=== PATIENT | female | born 1935 | race Caucasian/White ===

== ENCOUNTER 2018-07-12 14:00 | Outpatient (RCR) ==
--- NOTE | 2018-06-26 14:34 | RS.OPPTEV2 ---
Date of Note: 06/25/18 Visit #: 1 Date of Evaluation: 06/25/18 Payer Source: MEDICARE Treatment Diagnosis: Balance impairment, unsteady gait History of Condition/Mechanism of Injury:: Mrs. Louis reports progressive unsteadiness on her feet over the last two years. States she has lost a lot of weight due to illness and stress. Prior Level of Function.....Patient was independent with: ADL's, Self Care, Caregiving, Ambulation/Mobility, Community Integration/Access Level of Function: Independent in community. Functional Limitations: Reaching, Pushing, Community Access/Integration Current Subjective/complaints:: Patient reports being unsteady on her feet. She describes times of feeling lightheaded and veering when she walks. Denies a history of falls. States she is here to prevent falls. She has been on antibiotics for several months for a lung infection. Denies any shortness of breath with activity or prolonged walking. She denies tingling or numbness in the LE's. She does not use an assistive device for ambulation. She has 3 steps with a rail, leading to the garage, which she uses daily. Treatment Side (optional): N/A Medical History Medical History: Arthritis (hands) Surgical History: Tonsillectomy Smoking Status: Former smoker Hx Home Medications: States her medications have not been changed recently. synthroid, acebutolol, naproxen,voltaren gel, mucinex, (Clarithromyc,Rifampin, Ethambutol (3 antibiotics for lungs), cod liver oil, calcium Patient's Goals: Her goal is to avoid falls. Functional Outcome Measure Tinetti: 24 (24/28=14% impairment) Dynamic Gait: 16 (16/24=33% impairment) Other: 5X Sit to stand test: 16.13 seconds Norms for 80-89 y/0 is 14.8 seconds - G Codes & Severity Modifier G Codes & Modifier: Mobility current CJ. Mobility goal CH Source of G Code score: Dynamic Gait index Observation - Observation Posture: Forward Head, Rounded Shoulders, Decreased Lumbar Lordosis Gait - Gait Pattern Gait Comments: Patient ambulates without an assistive device independently into department. She demonstrates a narrow base of support, short stride length, and minimal foot clearance bilaterally. She demonstrates no loss of balance. She does demonstrate a slight path deviation with ambulating a straight path and following changing direction. General Range of Motion: Demonstrates full functional AROM of bilateral LE's. Muscle Strength: Right LE strength is 4+ to 5/5 throughout. Left hip is generally 4/5. Left quads and HS 4/5, ankle 4+/5. Trunk strength 4/5. Sensation - Sensation Right Lower Extremity: Intact/Normal Left Lower Extremity: Intact/Normal Balance - Sitting Balance Static Sitting Balance: Good Dynamic Sitting Balance: Good - Standing Balance Static Standing Balance: Good Dynamic Standing Balance: Fair (+) Additional Comments: Additional Comments: Blood pressure taken in sitting at rest 111/57 . BP taken immediately after standin/59, then taken one minute later: 92/57. Patient reports slight lightheadedness while standing. Interventions - Exercise/Activities/Manual Therapy Exercises/Activities: Patient instructed in HEP of hip abd/add in supine, standing hip abduction, and hip flexion and LAQ's in sitting. Discussed the change we saw in her BP after standing for a minute. Encouraged patient to take her time with transfers and to wait a little bit longer before walking. Total minutes of Exercise: 5 mins Manual Therapy: NA HOME EXERCISE PROGRAM: hip abd/add in supine, standing hip abduction, and hip flexion and LAQ's in sitting. - Charges Timed Code Treatment Minutes: 5 mins Total Treatment Time: 48 mins Procedures billed for this date of service:: EVAL medium EVALUATION COMPLEXITY LEVEL EVALUATION COMPLEXITY LEVEL: HISTORY: Medium (current lung infection, recent weight loss, possible orthostatic hypotension), EXAM OF BODY SYSTEMS: Medium ( strength, coordination, sensation, balance), CLINICAL PRESENTATION: Medium, CLINICAL DECISION MAKING: Medium Assessment Assessment: Patient presents to therapy with a diagnosis of balance problems. She presents with reports of times of lightheadedness with ambulation and veering from a straight path when ambulating. She presents to be at a low risk for falls per Tinetti Assessment, but Dynamic Gait Index shows patient at a 33.4 % impairment. She demonstrates weakness in the left hip, knee, and ankle. She demonstrates a 19 point drop in systolic after one minute of standing from a chair,which can cause symptoms that she has been having of lightheadedness. Advised patient to take her time following supine to stand, or sit to stand transfers, to decrease her risk for falls. Mrs. Louis demonstrates potential to reduce her risk for falls with strengthening of the left LE and safety training to reduce gait deviations with ambulation. Patient Education: Education of diagnosis, Body/Joint mechanics, Home Exercise Program, Home Safety, Activity Modification, Education of Plan of Care Rehab Potential: Good Short Term Goals Goal #1: Patient will display independence with home exercise program. Goal to be met by: 07/10/18 Goal #2: Left hip flexion 4+/5. Goal to be met by: 07/10/18 Goal #3: Pt will amb. consistently with good base of support in department. Goal to be met by: 07/10/18 Brazing Machine Operator Goals Goal #1: Pt knows HEP and to continue ex's to maintain functional level at D/C. Goal to be met by: 08/05/18 Goal #2: Score on 5 X sit to stand test improved to 14.5 seconds Goal to be met by: 08/05/18 Goal #3: Pt to amb. community distances with good safety & min. gait deviations. Goal to be met by: 08/05/18 Plan - Treatment to be Provided Procedures: Therapeutic Exercises, Therapeutic Activity, Gait Training, Neuromuscular Rehab, Patient Education Modalities: No Modalities - Treatment Plan Frequency: 2 X week Duration: 4 weeks ORDER # VISITS AND/OR THROUGH DATE: 08/05/18 - Treatment Code (1) General unsteadiness Code(s): R26.81 - UNSTEADINESS ON FEET Comments: R26.81 (2) Leg weakness Code(s): M62.81 - MUSCLE WEAKNESS (GENERALIZED) Qualifiers: Laterality: left Qualified Code(s): R29.898 - Other symptoms and signs involving the musculoskeletal system (3) Orthostatic hypotension Code(s): I95.1 - ORTHOSTATIC HYPOTENSION Comments: I95.1
--- NOTE | 2018-06-28 10:25 | RS.OPPTDN ---
Subjective Date of Note: 06/28/18 Visit #: 2 Date of Evaluation: 06/25/18 Payer Source: MEDICARE Treatment Diagnosis: Balance impairment, unsteady gait Current Subjective/complaints:: Patient reports her greatest difficulty with longer walks is going straight ahead,veering to L or R. Interventions - Exercise/Activities/Manual Therapy Exercises/Activities: 45 mins. total of LE strengthening,5 mins. on bike ,then progressed to leg press,3/15 @ 45 #,calf raises @ 15 #.Seated exercises ,3/10 of LAQ,and hip flexion in sitting.Ended session with side stepping ,and high stepping woth hand hold of 1. Total minutes of Exercise: 45 Manual Therapy: NA Total minutes of Manual Therapy: 0 HOME EXERCISE PROGRAM: hip abd/add in supine, standing hip abduction, and hip flexion and LAQ's in sitting. - Objective Findings Observations,measurements,etc.: Blood pressure sitting 118/74,110 /64 standing. 18/70 after 5 mins. bike,126/78 after standing balance exercises. - Charges Timed Code Treatment Minutes: 40 Total Treatment Time: 45 Procedures billed for this date of service:: ex 2,NMR 1 Assessment: Patient tolerates treatment well,is very attentive ,motivated to improve.She rports fatigue only ,bno joint pain with exercises.She only has one brief loss of balance with high steps ,but self -corrects. Patient Education: Education of diagnosis, Body/Joint mechanics, Home Exercise Program, Home Safety, Activity Modification, Education of Plan of Care Patient demonstrates compliance with HEP?: Yes Short Term Goals Goal #1: Patient will display independence with home exercise program. Goal to be met by: 07/10/18 Goal #2: Left hip flexion 4+/5. Goal to be met by: 07/10/18 Goal #3: Pt will amb. consistently with good base of support in department. Goal to be met by: 07/10/18 Credit Clerk Goals Goal #1: Pt knows HEP and to continue ex's to maintain functional level at D/C. Goal to be met by: 08/05/18 Goal #2: Score on 5 X sit to stand test improved to 14.5 seconds Goal to be met by: 08/05/18 Goal #3: Pt to amb. community distances with good safety & min. gait deviations. Goal to be met by: 08/05/18 Plan PLAN OF CARE EXPIRES ON:: 08/05/18 ORDER # VISITS AND/OR THROUGH DATE: 08/05/18 PLAN: Continue PT to increase LE strength ,reducing the risk of falls.
--- NOTE | 2018-07-02 15:14 | RS.OPPTDN ---
Subjective Date of Note: 07/02/18 Visit #: 3 Date of Evaluation: 06/25/18 Payer Source: MEDICARE Treatment Diagnosis: Balance impairment, unsteady gait Current Subjective/complaints:: Patient reports her L hip is hurting her more , but continues to do HEP twice a day.We discussed to decrease the amount of exercises if necessary,and use ice due to also being tender to palpate the L trochanter area. Pain Assessment - Pain Description Pain Location: L hip Pain Description: Aching, Acute Current Pain Intensity: not rated Other Comments regarding Pain:: pain affects her sitting for prolonged time periods Interventions - Exercise/Activities/Manual Therapy Exercises/Activities: 45 mins. total of LE strengthening,seated calf raises,3/10 ,attempted seated hip flexion and LAQ's with 1# resistance ,but stopped due to L hip pain.[employer] BALANCE SYSTEM of postural stability,weight shift ,limits of stability ,and maze control. Total minutes of Exercise: 50 Manual Therapy: NA Total minutes of Manual Therapy: 0 HOME EXERCISE PROGRAM: hip abd/add in supine, standing hip abduction, and hip flexion and LAQ's in sitting. - Charges Timed Code Treatment Minutes: 50 Total Treatment Time: 55 Procedures billed for this date of service:: ex ,NMR 2 Assessment: Patient tolerates balance system well,has deficit with weight shift to L and posteriorly,indicative of L hip wealness.She is motivated to imptove, compliant to HEP.We discussed modifying her exercise program at home,walking more and less of HEP .She is tender to palpate te L trochanter today. Patient Education: Education of diagnosis, Body/Joint mechanics, Home Exercise Program, Home Safety, Activity Modification, Education of Plan of Care Patient demonstrates compliance with HEP?: Yes Short Term Goals Goal #1: Patient will display independence with home exercise program. Goal to be met by: 07/10/18 Progress towards Goal:: Progressing Goal #2: Left hip flexion 4+/5. Goal to be met by: 07/10/18 Goal #3: Pt will amb. consistently with good base of support in department. Goal to be met by: 07/10/18 Progress towards Goal:: Progressing Longterm Goals Goal #1: Pt knows HEP and to continue ex's to maintain functional level at D/C. Goal to be met by: 08/05/18 Progress towards goal: Progressing Goal #2: Score on 5 X sit to stand test improved to 14.5 seconds Goal to be met by: 08/05/18 Goal #3: Pt to amb. community distances with good safety & min. gait deviations. Goal to be met by: 08/05/18 Plan PLAN OF CARE EXPIRES ON:: 08/05/18 ORDER # VISITS AND/OR THROUGH DATE: 08/05/18 PLAN: Continue PT to increase LE/trunk strength ,resulting in steadier gait.
--- NOTE | 2018-07-05 15:01 | RS.OPPTDN ---
Subjective Date of Note: 07/05/18 Visit #: 4 Date of Evaluation: 06/25/18 Payer Source: MEDICARE Treatment Diagnosis: Balance impairment, unsteady gait Current Subjective/complaints:: Patient reports the L hip feels better today,is walking more and doing less of the AROM,especially for the L hip. Pain Assessment - Pain Description Pain Location: none today Pain Description: none Interventions - Exercise/Activities/Manual Therapy Exercises/Activities: 45 mins. total of LE strengthening,in supine with 2.5 # all directions,3/10 each.Ended session with dynamic balance of side=steps ,SLS for 3 secs. on each LE. Total minutes of Exercise: 45 Manual Therapy: NA HOME EXERCISE PROGRAM: hip abd/add in supine, standing hip abduction, and hip flexion and LAQ's in sitting. - Objective Findings Observations,measurements,etc.: BP 1 supine 124/68 ,BP 2 sitting 124/64,BP 3 is 120 /62. . - Charges Timed Code Treatment Minutes: 45 Total Treatment Time: 45 Procedures billed for this date of service:: ex 2,NMR 1 Assessment: Progressing ,minimal drop in BP today with position change.She tolerates the exercises well,but requires to control speed of eccentric motions as she fatigues. Patient Education: Education of diagnosis, Body/Joint mechanics, Home Exercise Program, Home Safety, Activity Modification, Education of Plan of Care Short Term Goals Goal #1: Patient will display independence with home exercise program. Goal to be met by: 07/10/18 Progress towards Goal:: Progressing Goal #2: Left hip flexion 4+/5. Goal to be met by: 07/10/18 Progress towards Goal:: Progressing Goal #3: Pt will amb. consistently with good base of support in department. 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 Goal to be met by: 08/05/18 Progress towards goal: Progressing Goal #2: Score on 5 X sit to stand test improved to 14.5 seconds Goal to be met by: 08/05/18 Goal #3: Pt to amb. community distances with good safety & min. gait deviations. Goal to be met by: 08/05/18 Plan PLAN OF CARE EXPIRES ON:: 08/05/18 ORDER # VISITS AND/OR THROUGH DATE: 08/05/18 PLAN: Continue PT to increase LE/hip strength ,for safer gait .
--- NOTE | 2018-07-10 15:30 | RS.OPPTDN ---
Subjective Date of Note: 07/10/18 Visit #: 5 Date of Evaluation: 06/25/18 Payer Source: MEDICARE Treatment Diagnosis: Balance impairment, unsteady gait Current Subjective/complaints:: Patient says that she has not been feeling well this week. She says she gets light headed in the morning with needing to stand longer to gather her balance and at times requires to hold onto the wall or furniture. She says she has to care for her that is failing in his health. She says she has not performed HEP lately because she has not felt well. Pain Assessment - Pain Description Pain Location: No elevation in pain, just not feeling good throughout her body. Interventions - Exercise/Activities/Manual Therapy Exercises/Activities: Patient performs: QS, SAQ 2 1/2#, DF and hooklying hip abd with green tband, ball squeezes, all 2x10 reps. Isometric hip flexion x 10. Patient's BP taken intermittently. Standing at railing: marching, hip abd both x 10, forward step ups on small board x 5, then lateral step ups x 5 leading each side. Total minutes of Exercise: 28 mins EX, 10 mins NEURO Manual Therapy: NA HOME EXERCISE PROGRAM: hip abd/add in supine, standing hip abduction, and hip flexion and LAQ's in sitting. - Objective Findings Observations,measurements,etc.: BP: 120/68 sitting, 118/70 supine, sitting after therex: 122/70, standin/62 R arm - Charges Timed Code Treatment Minutes: 38 Total Treatment Time: 43 Procedures billed for this date of service:: ex2, neuro1 Assessment: Patient not feeling well this week and rests provided today. Minimal change with BP during positional changes with exception of sit to stand following exercise 22 point drop systolically and 8 points diastolically. All dynamic exercises performed without LOB, but did c/o mild lightheadedness with R lateral step ups. Patient Education: Body/Joint mechanics, Home Exercise Program, Home Safety, Education of Plan of Care Patient demonstrates compliance with HEP?: Yes Short Term Goals Goal #1: Patient will display independence with home exercise program. Goal to be met by: 07/10/18 Progress towards Goal:: Progressing Goal #2: Left hip flexion 4+/5. Goal to be met by: 07/10/18 Progress towards Goal:: Progressing Goal #3: Pt will amb. consistently with good base of support in department. Goal to be met by: 07/10/18 Progress towards Goal:: Progressing Group Home Goals Goal #1: Pt knows HEP and to continue ex's to maintain functional level at D/C. Goal to be met by: 08/05/18 Progress towards goal: Progressing Goal #2: Score on 5 X sit to stand test improved to 14.5 seconds Goal to be met by: 08/05/18 Goal #3: Pt to amb. community distances with good safety & min. gait deviations. Goal to be met by: 08/05/18 Plan PLAN OF CARE EXPIRES ON:: 08/05/18 ORDER # VISITS AND/OR THROUGH DATE: 08/05/18 PLAN: Patient to continue advancing LE strengthening and bal exercise to improve gait.
--- NOTE | 2018-07-12 16:31 | RS.OPPTDN ---
Subjective Date of Note: 07/12/18 Visit #: 6 Date of Evaluation: 06/25/18 Payer Source: MEDICARE Treatment Diagnosis: Balance impairment, unsteady gait Current Subjective/complaints:: Patient reports she feels slightly better,but not as good as last week.She continues to be cautious when standing due to drop in BP. Pain Assessment - Pain Description Pain Description: soreness Current Pain Intensity: minimal Interventions - Exercise/Activities/Manual Therapy Exercises/Activities: Patient performs: side stepping ,high stepping ,sit to stand multiple reps.BP sitting 128/64 ,standing 126/62.[employer] BALANCE SYSTEM for postural stability,random control ,pitch/catch game ,weight shifting. Total minutes of Exercise: 50 Manual Therapy: NA Total minutes of Manual Therapy: 0 HOME EXERCISE PROGRAM: hip abd/add in supine, standing hip abduction, and hip flexion and LAQ's in sitting. - Charges Timed Code Treatment Minutes: 50 Total Treatment Time: 55 Procedures billed for this date of service:: NMR2,ex 1 Assessment: Patient instructed to widen base of support with walking for stability.She has minimal drop in BP today with change of position.She has minimal loss of balance with high-steps,minimal assist to correct.She is attentive and compliant to HEP.We discussed a regular walking program at home to possibly elevate the BP more consistently. Patient Education: Education of diagnosis, Body/Joint mechanics, Home Exercise Program, Home Safety, Activity Modification, Education of Plan of Care Patient demonstrates compliance with HEP?: Yes Short Term Goals Goal #1: Patient will display independence with home exercise program. Goal to be met by: 07/10/18 Progress towards Goal:: Progressing Goal #2: Left hip flexion 4+/5. Goal to be met by: 07/10/18 Progress towards Goal:: Progressing Goal #3: Pt will amb. consistently with good base of support in department. Goal to be met by: 07/10/18 Progress towards Goal:: Partially Met Retirement Goals Goal #1: Pt knows HEP and to continue ex's to maintain functional level at D/C. Goal to be met by: 08/05/18 Progress towards goal: Progressing Goal #2: Score on 5 X sit to stand test improved to 14.5 seconds Goal to be met by: 08/05/18 Goal #3: Pt to amb. community distances with good safety & min. gait deviations. Goal to be met by: 08/05/18 Plan PLAN OF CARE EXPIRES ON:: 08/05/18 ORDER # VISITS AND/OR THROUGH DATE: 08/05/18 PLAN: Continue PT to strengthen LE's and core for safe gait and necessary ADL's.
== END 2018-07-13 23:59 ==
PROVIDERS: ATTEND Internal Medicine
DX: R26.89 Other abnormalities of gait and mobility (principal)

== ENCOUNTER 2018-07-19 13:00 | Outpatient (RCR) ==
--- NOTE | 2018-07-17 14:15 | RS.OPPTDN ---
Subjective Date of Note: 07/17/18 Visit #: 7 Date of Evaluation: 06/25/18 Payer Source: MEDICARE Treatment Diagnosis: Balance impairment, unsteady gait Current Subjective/complaints:: Patient feels the balance exercises help her the most.She also reports the light - headed feeling is better," almost gone ." Interventions - Exercise/Activities/Manual Therapy Exercises/Activities: 45 mins. total on [employer] BALANCE SYSTEM including postural stability,limits of stability , weight shifting ,random control ,maze control. Manual Therapy: NA HOME EXERCISE PROGRAM: hip abd/add in supine, standing hip abduction, and hip flexion and LAQ's in sitting. - Objective Findings Observations,measurements,etc.: BP today was 120/70 consistently ,including change of positions before and after balance activities. - Charges Timed Code Treatment Minutes: 45 Total Treatment Time: 50 Procedures billed for this date of service:: NMR 3 Assessment: Patient has improved weight shifting to the left and posteriorly today.She ambulates with normal BALDO,no deviation from path entering or exiting clinic.She is compliant to HEP and all recommendations of the therapy staff. Patient Education: Body/Joint mechanics, Home Exercise Program, Home Safety, Activity Modification, Education of Plan of Care Patient demonstrates compliance with HEP?: Yes Short Term Goals Goal #1: Patient will display independence with home exercise program. Goal to be met by: 07/10/18 Progress towards Goal:: Partially Met Goal #2: Left hip flexion 4+/5. Goal to be met by: 07/10/18 Progress towards Goal:: Partially Met Goal #3: Pt will amb. consistently with good base of support in department. 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 Goal to be met by: 08/05/18 Progress towards goal: Progressing Goal #2: Score on 5 X sit to stand test improved to 14.5 seconds Goal to be met by: 08/05/18 (N/A) Comments: will assess this next session Goal #3: Pt to amb. community distances with good safety & min. gait deviations. Goal to be met by: 08/05/18 Progress towards goal: Progressing Plan PLAN OF CARE EXPIRES ON:: 08/05/18 ORDER # VISITS AND/OR THROUGH DATE: 08/05/18 PLAN: Continue PT to strengthen core and LE's for safe gait in community.
--- NOTE | 2018-07-19 14:24 | RS.OPPTDN ---
Subjective Date of Note: 07/19/18 Visit #: 8 Date of Evaluation: 06/25/18 Payer Source: MEDICARE Treatment Diagnosis: Balance impairment, unsteady gait Current Subjective/complaints:: Patient very plesed with her progress,agrees with D/C paln today due to good progres with goals met. Interventions - Exercise/Activities/Manual Therapy Exercises/Activities: 45 mins. total therapeutic activities ,doing Tinetti assessment ,Dynamic Gait Index, 5x sit to stand. Total minutes of Exercise: 45 Manual Therapy: NA HOME EXERCISE PROGRAM: hip abd/add in supine, standing hip abduction, and hip flexion and LAQ's in sitting. - Objective Findings Observations,measurements,etc.: Tinetti score ,dDynamic Gait Index /,5 x sit to bullet swaging machine operator 12 secs. - Charges Timed Code Treatment Minutes: 45 Total Treatment Time: 45 Procedures billed for this date of service:: Ther. Act 3 Assessment: Patient met all reahb goals ,has good understanding of safety and HEP to be continued.She is aware of D/C plan today. Patient Education: Education of diagnosis, Body/Joint mechanics, Home Exercise Program, Home Safety, Activity Modification, Education of Plan of Care Patient demonstrates compliance with HEP?: Yes Short Term Goals Goal #1: Patient will display independence with home exercise program. Goal to be met by: 07/10/18 Progress towards Goal:: Met Goal #2: Left hip flexion 4+/5. Goal to be met by: 07/10/18 Progress towards Goal:: Met Goal #3: Pt will amb. consistently with good base of support in department. Goal to be met by: 07/10/18 Progress towards Goal:: Met Sliver Lap Machine Tender Goals Goal #1: Pt knows HEP and to continue ex's to maintain functional level at D/C. Goal to be met by: 08/05/18 Progress towards goal: Met Goal #2: Score on 5 X sit to stand test improved to 14.5 seconds Goal to be met by: 08/05/18 (12 secs.) Progress towards goal: Met Goal #3: Pt to amb. community distances with good safety & min. gait deviations. Goal to be met by: 08/05/18 Progress towards goal: Met Plan PLAN OF CARE EXPIRES ON:: 08/05/18 ORDER # VISITS AND/OR THROUGH DATE: 08/05/18 PLAN: Discuss patient progress with supervising PT, plan to D/C.
--- NOTE | 2018-07-23 09:11 | RS.OPPTDC ---
Date of Discharge: 07/19/18 Date of Evaluation: 06/25/18 Number of Visits: 8 Treatment Diagnosis: Balance impairment, unsteady gait Current Complaints/Gains: Mrs. Louis reports being pleased with her progress. She reports felling steadier on her feet and reports no "light-headed " sensation today with any activity. Functional Outcome Measure Tinetti: 28 Dynamic Gait: 23 Other: 5X sit to stand :12 seconds - G Codes & Severity Modifier G Codes & Modifier: Mobility goal CH. Mobility D/C CH Source of G Code score: Tinetti Assessment and Dynamic Gait index Interventions - Exercise/Activities/Manual Therapy Exercises/Activities: Na Manual Therapy: NA HOME EXERCISE PROGRAM: hip abd/add in supine, standing hip abduction, and hip flexion and LAQ's in sitting. - Objective Findings Observations,measurements,etc.: Patient independent in HEP. Hip flexor strength 4+/5. - Charges Timed Code Treatment Minutes: NA Total Treatment Time: NA Procedures billed for this date of service:: NA Assessment Assessment: Patient made good progress with therapy. She shows much improved balance and safety with gait. Her risk for falls was reduced drastically with skilled therapy. Short Term Goals Goal #1: Patient will display independence with home exercise program. Goal to be met by: 07/10/18 Progress towards Goal:: Met Goal #2: Left hip flexion 4+/5. Goal to be met by: 07/10/18 Progress towards Goal:: Met Goal #3: Pt will amb. consistently with good base of support in department. Goal to be met by: 07/10/18 Progress towards Goal:: Met Fdc Goals Goal #1: Pt knows HEP and to continue ex's to maintain functional level at D/C. Goal to be met by: 08/05/18 Progress towards goal: Met Goal #2: Score on 5 X sit to stand test improved to 14.5 seconds Goal to be met by: 08/05/18 (12 secs.) Progress towards goal: Met Goal #3: Pt to amb. community distances with good safety & min. gait deviations. Goal to be met by: 08/05/18 Progress towards goal: Met Plan Reason for Discharge:: All Goals Met
== END 2018-08-12 23:59 ==
PROVIDERS: ATTEND Internal Medicine
DX: R26.89 Other abnormalities of gait and mobility (principal)

== ENCOUNTER 2023-06-29 14:35 | Observation (INO) ==
[2023-06-29 16:40] LABS: BILIRUBIN,URINE Negative (NEGATIVE); CLARITY,URINE Clear (CLEAR); COLOR,URINE Yellow (YELLOW); GLUCOSE, URINE (UA) Negative (NEGATIVE); KETONES,URINE Negative (NEGATIVE); LEUKOCYTE ESTERASE ,URINE Negative (NEGATIVE); NITRITE,URINE Negative (NEGATIVE); PH,URINE 7.5 (5-9); PROTEIN,URINE Negative (NEGATIVE); URINE, BLOOD Negative (NEGATIVE); UROBILINOGEN,URINE 0.2 (0.2)
--- NOTE | 2023-06-29 17:27 | ED.PDOC ---
General ED Provider: Dr. SOBEIDA CARDONA MD Chief Complaint: Respiratory Complaint Stated Complaint: cough, congestion Time Seen by Provider: 06/29/23 16:20 Mode of Arrival: Walk-In Information Source: Patient Exam Limitations: No limitations Nursing and Triage Documentation Reviewed and Agree: Yes Respiratory Complaint Exam Respiratory Complaint/Exam Onset/Duration: ~4 days ago Symptoms Are: Still present Timing: Constant Initial Severity: Moderate Current Severity: Moderate Location: Chest Character: Reports Productive cough Aggravating: Reports None Alleviating: Reports None Associated Signs and Symptoms: Reports Dyspnea, URI and Nasal congestion Related History: Reports Similar episode History of Healthcare-Acquired Pneumonia: No Related Surgical History: Reports None Pulmonary Embolism Risk Factors: None Pseudomonas Risk Factors: Reports Chronic Lung Disease Tuberculosis Risk Factors: Reports None Status Asthmaticus Risk Factors: Reports None Home Oxygen Use: No Recent Stress Test: No Recent Echo/LV Function: No Current Antibiotic Use: No Current Asthma Medication Use: No Respiratory Distress: None Inadequate Respiratory Effort: No Stridor Present: No JVD Present: No Accessory Muscle Use: No Retractions: Not Present Diminished Breath Sounds: No Sinus Tenderness: None Grunting Respirations: No Kussmaul Respirations: No Differential Diagnoses: CHF, Pulmonary Edema, COPD Exacerbation, Pneumonia, Pneumothorax, Pulmonary Embolism, SARS, Tuberculosis, Bronchitis, Bronchiolitis, RSV, Bronchospasm, Sinusitis, URI, Influenza, Laryngitis, MRSA and VRE Review of Systems Review Of Systems Constitutional: Reports No symptoms Respiratory: Reports Cough and Shortness of Breath All Other Systems: Reviewed and Negative [facility] Medical History (Updated 06/29/23 @ 23:43 by MATTHEW SOSA RN) Congestive heart failure I50.9 - Heart failure, unspecified (ICD-10) Hypothyroid E03.9 - Hypothyroidism, unspecified (ICD-10) 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) Skin cancer of face C44.300 - Unspecified malignant neoplasm of skin of unspecified part of face (ICD-10) Family History (Updated 06/29/23 @ 20:56 by MATTHEW SOSA RN) Mother Cancer of brain Stroke Social History Smoking and tobacco status: Former smoker Surgical History (Updated 06/29/23 @ 20:54 by MATTHEW YOUNG, RN) Hx of tonsillectomy Z90.89 - Acquired absence of other organs (ICD-10) Female Reproductive History Menstrual Hx Hysterectomy: No Hx Tubal Ligation: No Physical Exam Physical Exam Appearance: Reports Ill-appearing Ill-appearing: Mild Pain Distress: None Eyes: Reports AGUSTINA, EOMI and Conjunctiva clear ENT: Reports Ears normal and Nose normal Neck: Nonsupple (normal age-appropriate external appearance) Respiratory: Reports Airway patent, Breath sounds clear, Breath sounds equal, Breath sounds diminished and Respirations nonlabored Cardiovascular: Reports RRR GI/: Reports Soft, Nontender and Bowel sounds normal Musculoskeletal: Reports Normal strength and ROM intact Skin: Reports Warm, Dry and Normal color Neurological: Reports Sensation intact and Motor intact Psychiatric: Reports Affect appropriate and Mood appropriate Critical Care Note Critical Care Note Total Critical Care Time (mins): 0 Course Course 06/30/23 05:40 06/30/23 05:01 Orders, Labs, Meds: Lab Review 06/29/23 06/29/23 06/29/23 16:30 18:15 18:45 WBC 6.02 RBC 4.09 L Hgb 13.1 Hct 39.0 MCV 95.4 MCH 32.0 H MCHC 33.6 RDW Coeff of Mai 12.3 Plt Count 255 Immature Gran % (Auto) 0.3 Neut % (Auto) 66.1 Lymph % (Auto) 15.8 Dickenson % (Auto) 11.5 H Eos % (Auto) 5.8 Baso % (Auto) 0.5 Neut # (Auto) 4.0 Lymph # (Auto) 1.0 Dickenson # (Auto) 0.7 Eos # (Auto) 0.4 Baso # (Auto) 0.0 Immature Gran # (Auto) 0.0 Sodium 122.2 L Potassium 4.39 Chloride 82.3 L Carbon Dioxide 32.3 H Anion Gap 11.99 BUN 18.0 H Creatinine 0.68 Estimated GFR (MDRD) 82.00 BUN/Creatinine Ratio 26.47 Glucose 94.4 Lactic Acid 0.65 L Calcium 9.49 Magnesium 1.64 Total Bilirubin 0.55 AST 37.9 H ALT 18.6 Alkaline Phosphatase 85.9 Troponin I < 0.012 NT-Pro-B Natriuret Pep 682 H Total Protein 7.94 Albumin 4.46 Globulin 3.48 Albumin/Globulin Ratio 1.28 Procalcitonin 0.07 Urine Color Yellow Urine Clarity Clear Urine pH 7.5 Ur Specific [place] 1.020 Urine Protein Negative Urine Glucose (UA) Negative Urine Ketones Negative Urine Blood Negative Urine Nitrite Negative Urine Bilirubin Negative Urine Urobilinogen 0.2 Ur Leukocyte Esterase Negative Influ A Molecular Assay Negative by naat Influ B Molecular Assay Negative by naat SARS CoV-2 RNA Rapid ELADIO Negative Orders Category Date Time Status ADMIT PATIENT INPATIENT .TO [facility] (MONITORED BED) ADMISSION 06/29/23 19:40 Active ACTIVITY .Early Mobilization for VTE Prevention CARE 06/29/23 19:40 Active INTAKE & OUTPUT Q8HR CARE 06/29/23 19:41 Active TELEMETRY MONITORING TELE CARE 06/29/23 19:41 Active VITAL SIGNS Q8HR CARE 06/29/23 19:41 Completed REGULAR DIET DIETARY 06/30/23 Breakfast Ordered BLOOD CULTURE (ED ONLY) Stat LAB 06/29/23 18:40 Received CBC W/ AUTO DIFF DAILY@0600 LAB 06/30/23 05:40 Completed CBC W/ AUTO DIFF DAILY@0600 LAB 07/01/23 06:00 Ordered CBC W/ AUTO DIFF Stat LAB 06/29/23 18:15 Completed CMP [COMPREHENSIVE METABOLIC PANEL] Stat LAB 06/29/23 18:15 Completed COMPREHENSIVE METABOLIC PANEL DAILY@0600 LAB 06/30/23 05:01 Completed COMPREHENSIVE METABOLIC PANEL DAILY@0600 LAB 07/01/23 06:00 Ordered COVID [SARS COV-2 RNA RAPID ELADIO] Stat LAB 06/29/23 18:45 Completed FLU A & B MOLECULAR [FLU A/B MOLECULAR] Stat LAB 06/29/23 18:15 Completed LACTIC ACID Stat LAB 06/29/23 18:15 Completed MAGNESIUM Stat LAB 06/29/23 18:15 Completed OSMOLALITY,URINE Routine LAB 06/29/23 16:30 Received PROBNP ED [NT-PROBNP(ED)] Stat LAB 06/29/23 18:15 Completed PROCALCITONIN Stat LAB 06/29/23 18:15 Completed RAPID STREP SCREEN [MOLECULAR GROUP A STREP] Stat LAB 06/29/23 18:15 Completed SERUM OSMOLALITY Routine LAB 06/29/23 16:30 Received TROPONIN I Stat LAB 06/29/23 18:15 Completed URINALYSIS C & S IF INDICATED Stat LAB 06/29/23 16:30 Completed Acetaminophen [Tylenol] Meds 06/29/23 19:40 Active 650 mg PO Q4H PRN Benzonatate [Tessalon Perles] Meds 06/29/23 18:50 Discontinued 200 mg PO ONCE ONE Ceftriaxone/D5w 1 gm Premix [Rocephin 1 gm/50 ml D5w] Meds 06/29/23 19:00 Active 1 gm in 50 ml IV DAILY Guaifenesin/Dextromethorphan [Robitussin Dm Syrup] Meds 06/29/23 18:50 Discontinued 10 ml PO ONCE ONE Sodium Chloride 0.9% [Sodium Chloride] 1,000 ml Meds 06/29/23 20:00 Active IV 75 mls/hr CHEST, 2 VIEWS PA & LAT Stat RADS 06/29/23 17:58 Completed Medications Generic Name Dose Route Start Last Admin Trade Name Freq PRN Reason Stop Dose Admin Acebutolol HCl 200 mg 06/30/23 09:00 Acebutolol Hcl 200 Mg Capsule PO TID [facility] Acetaminophen 650 mg 06/29/23 19:40 06/29/23 21:37 Acetaminophen 325 Mg Tablet PO 650 mg Q4H PRN Administration Mild Pain Aspirin 162 mg 06/30/23 09:00 Aspirin 81 Mg Tablet.Dr PO DAILY [facility] Calcium/Vitamin D 1 each 06/30/23 09:00 Calcium Carbonate/Vitamin D3 500 Mg/5 Mcg(200iu) 1 Each Tablet PO DAILY [facility] Guaifenesin 1,200 mg 06/30/23 09:00 Guaifenesin 600 Mg Tablet.Er PO DAILY [facility] CEFTRIAXONE/D5W 1 GM PREMIX 1 gm in 50 mls @ 75 mls/hr 06/29/23 19:00 06/29/23 18:59 Rocephin 1 Gm/50 Ml D5w IV 07/02/23 18:59 75 mls/hr DAILY MUNIRA Administration Sodium Chloride 1,000 mls @ 75 mls/hr 06/29/23 20:00 06/29/23 19:47 Sodium Chloride IV 75 mls/hr .[id number] MUNIRA Administration Levothyroxine Sodium 88 mcg 06/30/23 06:00 Levothyroxine Sodium 88 Mcg Tablet PO DAILY@0600 [facility] Multivitamins 1 tab 06/30/23 09:00 Multivitamin 1 Tab PO DAILY [facility] Polyethylene Glycol 17 gm 06/30/23 09:00 Polyethylene Glycol 17 Gm Powd.Pack PO DAILY MUNIRA Discontinued Medications Generic Name Dose Route Start Last Admin Trade Name Bertha PRN Reason Stop Dose Admin Benzonatate 200 mg 06/29/23 18:50 06/29/23 19:09 Benzonatate 100 Mg Capsule PO 06/29/23 18:51 200 mg ONCE ONE Administration Guaifenesin/Dextromethorphan 10 ml 06/29/23 18:50 06/29/23 19:09 Guaifenesin/Dextromethorphan 200/20 Mg/10 Ml Cup PO 06/29/23 18:51 10 ml ONCE ONE Administration Vital Signs: Temp Pulse Resp BP Pulse Ox 06/29/23 14:44 98.2 F 69 18 154/84 H 93 L Patient presents with acute on chronic productive cough. 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 She recently developed a productive cough and requests treatment. Labs posted, consistent with hyponatremia. CXR reported 'No acute radiographic abnormality'. She was given discussed admission with patient and she was amenable to placement. I spoke with the Hospitalist [employer], Tico Meyer, who accepted. She was in good condition when transported from this ED to the medical floor. Discharge Plan Discharge Patient Disposition: PLACED OBSERVATION Discharge Problem: Acute hyponatremia Did you review [place] [employer] for ALL controlled substances?: Not Applicable ED Provider: SOBEIDA CARDONA Condition: Stable Physician Progress Note: []
[2023-06-29 18:27] LABS: BASOPHILS % (AUTO) 0.5 % (0.0-3.0); EOSINOPHILS # (AUTO) 0.4 K/ul (0.0-0.7); EOSINOPHILS % (AUTO) 5.8 % (0.0-7.0); HEMOGLOBIN 13.1 g/dl (12.0-16.0); IMMATURE GRANULOCYTE % (AUTO) 0.3 % (0.0-5.0); LYMPHOCYTES % (AUTO) 15.8 (10.0-50.0); MEAN CORPUSCULAR HGB CONC 33.6 (31.8-35.4); MEAN CORPUSCULAR VOLUME 95.4 fl (81.0-99.0); MONOCYTES # (AUTO) 0.7 K/uL (0.4-2.0); MONOCYTES % (AUTO) 11.5 (0-10); NEUTROPHILS % (AUTO) 66.1 % (42.2-75.2); PLATELET COUNT 255 10^3/uL (140-440); RDW COEFFICIENT OF VARIATION 12.3 % (11.6-14.8); RED BLOOD COUNT 4.09 10^6/ul (4.20-5.40); WHITE BLOOD COUNT 6.02 K/ul (4.6-10.2)
[2023-06-29 18:37] LABS: ALANINE AMINOTRANSFERASE 18.6 U/L (0-35); ALBUMIN 4.46 g/dL (3.5-5.0); ALKALINE PHOSPHATASE 85.9 U/L (53-141); ASPARTATE AMINO TRANSFERASE 37.9 U/L (14-36); BILIRUBIN,TOTAL 0.55 mg/dL (0.2-1.3); CALCIUM 9.49 mg/dL (8.4-10.2); CARBON DIOXIDE 32.3 mmol/L (22-30.0); CHLORIDE 82.3 mmol/L (98-107); CREATININE 0.68 mg/dL (0.60-1.30); GLUCOSE 94.4 mg/dL (74-106); POTASSIUM 4.39 mmol/L (3.5-5.1); SODIUM 122.2 mmol/L (134.5-145); TOTAL PROTEIN 7.94 g/dL (6.3-8.2)
[2023-06-29 18:38] LABS: MAGNESIUM 1.64 mg/dL (1.6-2.3)
--- NOTE | 2023-06-29 18:40 | DI ---
EXAM: CHEST RADIOGRAPH (2 VIEW) TECHNIQUE: Frontal and Lateral Chest Radiographs. HISTORY: Cough. COMPARISON: None FINDINGS: Lines, Tubes, Devices: None. Lungs and Pleura: No focal consolidation. No pleural effusion. No pneumothorax. No pulmonary edema . Cardiomediastinum: Normal cardiomediastinal silhouette. No aortic calcifications. Bones/Soft Tissues: No acute osseous abnormality. No soft tissue abnormality. Upper Abdomen: Within normal limits. IMPRESSION: No acute radiographic abnormality.
[2023-06-29] MEDS ORDERED: TESSALON PERLES PO ONE (18:50)
[2023-06-29] MEDS ORDERED: ROBITUSSIN DM SYRUP PO ONE (18:50)
[2023-06-29 18:51] LABS: TROPONIN I < 0.012 ng/ml (0.0000-0.120)
[2023-06-29 18:56] LABS: SARS COV-2 RNA RAPID NAAT NEGATIVE (NEGATIVE)
[2023-06-29 19:00] LABS: MOLECULAR FLU A NEGATIVE BY NAAT (NEGATIVE); MOLECULAR FLU B NEGATIVE BY NAAT (NEGATIVE)
[2023-06-29] MEDS ORDERED: ROCEPHIN 1 GM/50 ML D5W 1 GM/50 ML BAG IV SCH (19:00)
[2023-06-29] MEDS ORDERED: SODIUM CHLORIDE 1,000 ML IV SCH (20:00)
[2023-06-29 21:16] VITALS: BMI 19.3
[2023-06-29] MEDS: TYLENOL PO PRN (21:37)
[2023-06-30 05:36] LABS: ALANINE AMINOTRANSFERASE 15.2 U/L (0-35); ALBUMIN 3.51 g/dL (3.5-5.0); ALKALINE PHOSPHATASE 64.9 U/L (53-141); ASPARTATE AMINO TRANSFERASE 33.5 U/L (14-36); BILIRUBIN,TOTAL 0.53 mg/dL (0.2-1.3); BLOOD UREA NITROGEN 15.1 mg/dL (7-17); CALCIUM 8.49 mg/dL (8.4-10.2); CARBON DIOXIDE 26.4 mmol/L (22-30.0); CHLORIDE 87.1 mmol/L (98-107); CREATININE 0.54 mg/dL (0.60-1.30); GLUCOSE 89.5 mg/dL (74-106); POTASSIUM 3.69 mmol/L (3.5-5.1); SODIUM 120.2 mmol/L (134.5-145); TOTAL PROTEIN 6.37 g/dL (6.3-8.2)
[2023-06-30 06:03] LABS: BASOPHILS % (AUTO) 0.4 % (0.0-3.0); EOSINOPHILS # (AUTO) 0.4 K/ul (0.0-0.7); EOSINOPHILS % (AUTO) 6.7 % (0.0-7.0); HEMATOCRIT 35.5 % (37.0-47.0); IMMATURE GRANULOCYTE % (AUTO) 0.2 % (0.0-5.0); LYMPHOCYTES % (AUTO) 18.4 (10.0-50.0); MEAN CORPUSCULAR HEMOGLOBIN 32.4 pg (27.0-31.0); MEAN CORPUSCULAR HGB CONC 33.8 (31.8-35.4); MEAN CORPUSCULAR VOLUME 95.9 fl (81.0-99.0); MONOCYTES # (AUTO) 0.6 K/uL (0.4-2.0); MONOCYTES % (AUTO) 12.2 (0-10); NEUTROPHILS # (AUTO) 3.3 K/ul (2.0-6.9); NEUTROPHILS % (AUTO) 62.1 % (42.2-75.2); PLATELET COUNT 222 10^3/uL (140-440); RDW COEFFICIENT OF VARIATION 12.3 % (11.6-14.8); WHITE BLOOD COUNT 5.23 K/ul (4.6-10.2)
[2023-06-30] MEDS: SODIUM CHLORIDE 3% 500 ML IV SCH (08:06)
[2023-06-30] MEDS ORDERED: ROBITUSSIN SUGAR-FREE PO PRN (08:32)
[2023-06-30] MEDS: SYNTHROID PO SCH (08:38)
[2023-06-30] MEDS: MULTIVITAMIN TABLET PO SCH (08:38)
[2023-06-30] MEDS: MUCINEX PO SCH (08:38)
[2023-06-30] MEDS: CALCIUM 500 + VIT D 5 MCG (200 IU) TABLET PO SCH (08:38)
[2023-06-30] MEDS: MIRALAX PO SCH (08:39)
[2023-06-30] MEDS: SECTRAL PO SCH ×3 (08:39→20:27)
[2023-06-30] MEDS ORDERED: ASPIRIN EC PO SCH (09:00)
--- NOTE | 2023-06-30 12:40 | PCM ---
Date of Service Date Seen by Provider: 06/30/23 Time Seen by Provider: 08:45 Admit Day/Time Admission Date: 06/29/23 Reason for Admission Chief Complaint: [facility] Provider Hospital Provider: JARETH ORR, [facility] History of Present Illness History of Present Illness: 88 yo female presented to the ER with complaints of cough and fatigue. 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 States her cough started on monday and has progressed. It is productive with clear sputum. Denies any fever, chills, body aches, sob, sick contacts, or chest pain. Does report being very fatigued. States she is supposed to be taking antibiotics but stopped taking them because they were interacting with her other regular medications. Follows with Pulmonary at [facility]. Case Discussed With Case Discussed With: Patient's case was discussed with the ER Physicians, Dr. 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) Skin cancer of face C44.300 - Unspecified malignant neoplasm of skin of unspecified part of face (ICD-10) Surgical History Hx of tonsillectomy Z90.89 - Acquired absence of other organs (ICD-10) Family History Mother Cancer of brain Stroke Social History Smoking and tobacco status: Former smoker Allergies Allergies Allergy/AdvReac Type Severity Reaction Status Date / Time levofloxacin [From Levaquin] AdvReac Verified 06/29/23 18:58 Current Medications Home Medications acebutolol 200 mg capsule 200 mg PO TID 06/29/23 [History Confirmed 06/29/23 Last Taken 06/29/23] acetaminophen 500 mg tablet (Tylenol Extra Strength) 500 mg PO Q4-6H PRN pain 06/29/23 [History Confirmed 06/29/23 Last Taken Unknown] aspirin 81 mg tablet,delayed release (Adult Low Dose Aspirin) 162 mg PO DAILY 06/29/23 [History Confirmed 06/29/23 Last Taken 06/29/23] calcium carbonate 600 mg calcium (1,500 mg) tablet 600 mg PO DAILY 06/29/23 [History Confirmed 06/29/23 Last Taken 06/29/23] diclofenac sodium 1 % topical gel (Aspercreme Arthritis Pain) 2 g topical PRN 06/29/23 [History Confirmed 06/29/23 Last Taken Unknown] guaifenesin 1,200 mg tablet, extended release 12 hr (Mucinex) 1,200 mg PO DAILY 06/29/23 [History Confirmed 06/29/23 Last Taken 06/29/23] hydrochlorothiazide 25 mg tablet 25 mg PO DAILY 06/29/23 [History Confirmed 06/29/23 Last Taken 06/29/23] levothyroxine 88 mcg tablet 88 mcg PO DAILY 06/29/23 [History Confirmed 06/29/23 Last Taken 06/29/23] multivitamin (Daily Multi-Vitamin tablet) 1 tab PO DAILY 06/29/23 [History Confirmed 06/29/23 Last Taken 06/29/23] polyethylene glycol 3350 17 gram oral powder packet (Miralax) 17 g PO DAILY 06/29/23 [History Confirmed 06/29/23 Last Taken 06/29/23] Home Acebutolol HCl (Acebutolol Hcl 200 Mg Capsule) 200 mg PO TID [facility] Last Admin: 06/30/23 08:39 Dose: 200 mg Acetaminophen (Acetaminophen 325 Mg Tablet) 650 mg PO Q4H PRN PRN Reason: Mild Pain Last Admin: 06/30/23 12:43 Dose: 650 mg Aspirin (Aspirin 81 Mg Tablet.Dr) 162 mg PO DAILYWM [facility] Calcium/Vitamin D (Calcium Carbonate/Vitamin D3 500 Mg/5 Mcg(200iu) 1 Each Tablet) 1 each PO DAILY [facility] Last Admin: 06/30/23 08:38 Dose: 1 each Guaifenesin (Guaifenesin 600 Mg Tablet.Er) 1,200 mg PO DAILY [facility] Last Admin: 06/30/23 08:38 Dose: 1,200 mg Guaifenesin (Guaifenesin 10 Ml/200 Mg Cup) 5 ml PO Q4H PRN PRN Reason: Cough Last Admin: 06/30/23 09:49 Dose: 5 ml CEFTRIAXONE/D5W 1 GM PREMIX (Rocephin 1 Gm/50 Ml D5w) 1 gm in 50 mls @ 75 mls/hr IV BEDTIME [facility] Stop: 07/02/23 18:59 Sodium Chloride (Sodium Chloride 3%) 500 mls @ 30 mls/hr IV .[id number] [facility] Last Admin: 06/30/23 08:06 Dose: 30 mls/hr Levothyroxine Sodium (Levothyroxine Sodium 88 Mcg Tablet) 88 mcg PO DAILY@0600 [facility] Last Admin: 06/30/23 08:38 Dose: 88 mcg Multivitamins (Multivitamin 1 Tab) 1 tab PO DAILY [facility] Last Admin: 06/30/23 08:38 Dose: 1 tab Polyethylene Glycol (Polyethylene Glycol 17 Gm Powd.Pack) 17 gm PO DAILY [facility] Last Admin: 06/30/23 08:39 Dose: 17 gm Discontinued Medications Aspirin (Aspirin 81 Mg Tablet.) 162 mg PO DAILY [facility] Last Admin: 06/30/23 08:38 Dose: 162 mg Benzonatate (Benzonatate 100 Mg Capsule) 200 mg PO ONCE ONE Stop: 06/29/23 18:51 Last Admin: 06/29/23 19:09 Dose: 200 mg Guaifenesin/Dextromethorphan (Guaifenesin/Dextromethorphan 200/20 Mg/10 Ml Cup) 10 ml PO ONCE ONE Stop: 06/29/23 18:51 Last Admin: 06/29/23 19:09 Dose: 10 ml CEFTRIAXONE/D5W 1 GM PREMIX (Rocephin 1 Gm/50 Ml D5w) 1 gm in 50 mls @ 75 mls/hr IV DAILY [facility] Stop: 07/02/23 18:59 Last Admin: 06/29/23 18:59 Dose: 75 mls/hr Sodium Chloride (Sodium Chloride) 1,000 mls @ 75 mls/hr IV .[id number] [facility] Last Admin: 06/29/23 19:47 Dose: 75 mls/hr Review of Systems Constitutional: Reports Fatigue and Weakness Head: Reports Normocephalic Eyes: Reports No symptoms Ears: Reports No symptoms Nose: Reports No symptoms Mouth: Reports No symptoms Throat: Reports No symptoms Cardiovascular: Reports No symptoms Respiratory: Reports Cough Gastrointestinal: Reports No symptoms Genitourinary: Reports No Symptoms Musculoskeletal: Reports No symptoms Endocrine: Reports No symptoms Hematology: Reports No symptoms Immunology: Reports No symptoms Neurological: Reports No symptoms Psychiatric: Reports No symptoms Physical examination Most Recent Vital Signs: Most Recent Vital Signs Temperature 97.6 F 06/30/23 10:00 Temperature Source Temporal Artery Scan 06/30/23 10:00 Temperature Source Oral 06/29/23 14:44 Pulse Rate 67 06/30/23 10:00 Respiratory Rate 16 06/30/23 10:00 Blood Pressure 147/61 H 06/30/23 10:00 Blood Pressure Mean 89 06/30/23 10:00 Blood Pressure Left Arm 166/69 06/29/23 20:15 Blood Pressure Location Left Arm 06/30/23 10:00 Blood Pressure Position Sitting 06/30/23 10:00 O2 Sat by Pulse Oximetry 96 06/30/23 10:00 Oxygen Delivery Method Room Air 06/30/23 10:00 Height 5 ft 2 in 06/29/23 20:15 Weight 106 lb 1 oz 06/29/23 20:15 Telemetry Type Remote Telemetry 06/30/23 07:00 Telemetry Monitoring Continues 06/30/23 07:00 Telemetry Heart Rate 65 06/30/23 07:00 EKG [place] Interval 0.22 H 06/30/23 07:00 EKG QRS Interval 0.10 06/30/23 07:00 Telemetry Strip Reading SR with 1st degree AVB 06/30/23 07:00 Appearance: Positive Well-appearing, Well-nourished, No Apparent Distress, Alert and Oriented x3 and Thin Skin: Positive Warm and Good Turgor HEENT: Positive Normocephalic and Atraumatic Neck: Positive Supple and Midline Trachea Chest/Lungs: Positive Symmetrical With Equal Breath Sounds, Clear to Auscultation Bilaterally and Good Air Movement all 4 Lung Durán Heart: Positive RRR and Pulses Normal GI/: Positive Soft, Nontender and Bowel Sounds Normal Musculoskeletal: Positive Normal Gait and Station Extremities: Positive Intact Peripheral Pulses, Stable Joints Without Laxity and Good ROM in All Joints Neurological: Positive Sensation Intact, Motor intact, Reflexes Intact, Alert, Oriented and Muscle Strength 5/5 in Upper and Lower Extremities Bilaterally (generalized weakness) Psychiatric: Positive Oriented x4, Appropriate Mood, Appropriate Affect, Intact Memory, Good Short-Term Recall, Good Long-Term Recall, Normal Judgement and Normal Insight Labs This Visit Labs This Visit: Labs This Visit 06/29/23 06/29/23 06/29/23 16:30 18:15 18:45 WBC 6.02 RBC 4.09 L Hgb 13.1 Hct 39.0 MCV 95.4 MCH 32.0 H MCHC 33.6 RDW Coeff of Mai 12.3 Plt Count 255 Immature Gran % (Auto) 0.3 Neut % (Auto) 66.1 Lymph % (Auto) 15.8 Nicholas % (Auto) 11.5 H Eos % (Auto) 5.8 Baso % (Auto) 0.5 Neut # (Auto) 4.0 Lymph # (Auto) 1.0 Nicholas # (Auto) 0.7 Eos # (Auto) 0.4 Baso # (Auto) 0.0 Immature Gran # (Auto) 0.0 Sodium 122.2 L Potassium 4.39 Chloride 82.3 L Carbon Dioxide 32.3 H Anion Gap 11.99 BUN 18.0 H Creatinine 0.68 Estimated GFR (MDRD) 82.00 BUN/Creatinine Ratio 26.47 Glucose 94.4 Lactic Acid 0.65 L Calcium 9.49 Magnesium 1.64 Total Bilirubin 0.55 AST 37.9 H ALT 18.6 Alkaline Phosphatase 85.9 Troponin I < 0.012 NT-Pro-B Natriuret Pep 682 H Total Protein 7.94 Albumin 4.46 Globulin 3.48 Albumin/Globulin Ratio 1.28 Procalcitonin 0.07 Urine Color Yellow Urine Clarity Clear Urine pH 7.5 Ur Specific [place] 1.020 Urine Protein Negative Urine Glucose (UA) Negative Urine Ketones Negative Urine Blood Negative Urine Nitrite Negative Urine Bilirubin Negative Urine Urobilinogen 0.2 Ur Leukocyte Esterase Negative Influ A Molecular Assay Negative by naat Influ B Molecular Assay Negative by naat SARS CoV-2 RNA Rapid ELADIO Negative 06/30/23 06/30/23 05:01 05:40 WBC 5.23 RBC 3.70 L Hgb 12.0 Hct 35.5 L MCV 95.9 MCH 32.4 H MCHC 33.8 RDW Coeff of Mai 12.3 Plt Count 222 Immature Gran % (Auto) 0.2 Neut % (Auto) 62.1 Lymph % (Auto) 18.4 Nicholas % (Auto) 12.2 H Eos % (Auto) 6.7 Baso % (Auto) 0.4 Neut # (Auto) 3.3 Lymph # (Auto) 1.0 Nicholas # (Auto) 0.6 Eos # (Auto) 0.4 Baso # (Auto) 0.0 Immature Gran # (Auto) 0.0 Sodium 120.2 L Potassium 3.69 Chloride 87.1 L Carbon Dioxide 26.4 Anion Gap 10.39 BUN 15.1 Creatinine 0.54 L Estimated GFR (MDRD) 107.00 BUN/Creatinine Ratio 27.96 Glucose 89.5 Lactic Acid Calcium 8.49 Magnesium Total Bilirubin 0.53 AST 33.5 ALT 15.2 Alkaline Phosphatase 64.9 Troponin I NT-Pro-B Natriuret Pep Total Protein 6.37 Albumin 3.51 Globulin 2.86 Albumin/Globulin Ratio 1.22 Procalcitonin Urine Color Urine Clarity Urine pH Ur Specific [place] Urine Protein Urine Glucose (UA) Urine Ketones Urine Blood Urine Nitrite Urine Bilirubin Urine Urobilinogen Ur Leukocyte Esterase Influ A Molecular Assay Influ B Molecular Assay SARS CoV-2 RNA Rapid ELADIO Microbiology This Visit 06/29/23 18:15 Throat Group A Strep Molecular Assay - Final Imaging Imaging: EXAM: CHEST RADIOGRAPH (2 VIEW) TECHNIQUE: Frontal and Lateral Chest Radiographs. HISTORY: Cough. COMPARISON: None FINDINGS: Lines, Tubes, Devices: None. Lungs and Pleura: No focal consolidation. No pleural effusion. No pneumothorax. No pulmonary edema. Cardiomediastinum: Normal cardiomediastinal silhouette. No aortic calcifications. Bones/Soft Tissues: No acute osseous abnormality. No soft tissue abnormality. Upper Abdomen: Within normal limits. IMPRESSION: No acute radiographic abnormality. Review Statement Review Statement: I have independently reviewed and interpreted the labs/EKGs/imaging that were ordered by the ER provider. I have reviewed all outside records that are available currently in our EMR including imaging/notes/labs from previous visits. Plan Plan: 1. Symptomatic Hyponatremia - did not improve overnight with NS, switched to 3% saline @30mL/hr, checking osmolalities, hold diuretics, telemetry, seizure p recautions, serial bmps 2. Mycobacterium avium complex - does not appear to be infected at this time, no fever, no WBC count elevation, procal normal, does have cough with clear sputum which is chronic per review of notes from [facility]; follows with Dr. Mitchell - Pulmonary at [facility] 3. CHF - unknown type, holding diuretics due to low sodium, I&O, daily weight 4. Hypothyroidism - chronic, continue home medications DVT Prophylaxis: Up ad jeffrey Time Spent: Greater than 80 minutes spent with patient, 50% of the time spent with this patient was devoted to counseling and coordination of care. [facility] minutes spent discussing advance care planning. Disposition: Admit to: Med/Surg Inpatient DNI, CPR only Discussed Plan of Care with Dr. Jone Jordan. Medications Medication Orders: Medications Ordered Category Date Time Status Acebutolol HCl [Sectral] Meds 06/30/23 09:00 Active 200 mg PO TID Acetaminophen [Tylenol] Meds 06/29/23 19:40 Active 650 mg PO Q4H PRN Aspirin [Aspirin EC] Meds 07/01/23 08:30 Active 162 mg PO DAILYWM Calcium Carbonate/Vitamin D3 [Calcium 500 + Vit D 5 Mcg Meds 06/30/23 09:00 Active (200 Iu) Tablet] 1 each PO DAILY Ceftriaxone/D5w 1 gm Premix [Rocephin 1 gm/50 ml D5w] Meds 06/30/23 21:00 Active 1 gm in 50 ml IV BEDTIME Guaifenesin [Mucinex] Meds 06/30/23 09:00 Active 1,200 mg PO DAILY Guaifenesin [Robitussin Sugar-Free] Meds 06/30/23 08:32 Active 5 ml PO Q4H PRN Levothyroxine Sodium [Synthroid] Meds 06/30/23 06:00 Active 88 mcg PO DAILY@0600 Multivitamin [Multivitamin Tablet] Meds 06/30/23 09:00 Active 1 tab PO DAILY Polyethylene Glycol 3350 [Miralax] Meds 06/30/23 09:00 Active 17 gm PO DAILY Sodium Chloride 3% 500 ml Meds 06/30/23 08:00 Active IV 30 mls/hr
[2023-06-30] MEDS: TYLENOL PO PRN (12:43)
--- NOTE | 2023-06-30 13:08 | CT ---
EXAM: CHEST CT WITH AND WITHOUT INTRAVENOUS CONTRAST HISTORY: Cough, dyspnea TECHNIQUE: CT acquisition of the chest from the thoracic inlet to the upper abdomen without and with IV contrast administration. 2-D coronal and sagittal reformatted images were obtained from the axial source images. CT Dose Reduction Techniques Performed: Yes. COMPARISON: None. FINDINGS: Lung Parenchyma and Airways: There is mild bronchiectasis, mostly in the lower lobes, with mucus plug ging. There is scattered tree in bud nodularities throughout the lungs. These are most prevalent champagne perior segment of the right lower lobe. No suspicious pulmonary nodule. No pleural effusion or thick ening. No pneumothorax. Thoracic Inlet, Mediastinum, and Pearl: No mass. No lymphadenopathy. Heart, Vessels, and Pericardium: The main pulmonary artery is normal caliber. There is no central pu lmonary embolism. The thoracic aorta is not dilated. The heart chambers are not enlarged. There is no pericardial effusion or thickening. Bones and Soft Tissues: Slight scoliosis. Chest wall soft tissues are unremarkable. Upper Abdomen: The visualized portions are unremarkable. IMPRESSION: 1. The appearance of the lungs suggests chronic atypical mycobacterial infectious process. All CT scans are performed using dose optimization techniques as appropriate to the performed exam an d include at least one of the following: Automated exposure control, adjustment of the mA and/or kV according t o size, and the use of iterative reconstruction technique.
[2023-06-30 13:14] LABS: BLOOD UREA NITROGEN 12.4 mg/dL (7-17); CALCIUM 9.35 mg/dL (8.4-10.2); CARBON DIOXIDE 30.8 mmol/L (22-30.0); CHLORIDE 86.1 mmol/L (98-107); CREATININE 0.6 mg/dL (0.60-1.30); POTASSIUM 3.87 mmol/L (3.5-5.1); SODIUM 124.6 mmol/L (134.5-145)
[2023-06-30 18:13] LABS: BLOOD UREA NITROGEN 12.9 mg/dL (7-17); CALCIUM 8.65 mg/dL (8.4-10.2); CARBON DIOXIDE 28.1 mmol/L (22-30.0); CHLORIDE 92.3 mmol/L (98-107); CREATININE 0.57 mg/dL (0.60-1.30); GLUCOSE 110.3 mg/dL (74-106); POTASSIUM 4.14 mmol/L (3.5-5.1); SODIUM 125.5 mmol/L (134.5-145)
[2023-06-30] MEDS ORDERED: ROCEPHIN 1 GM/50 ML D5W 1 GM/50 ML BAG IV SCH (21:00)
[2023-06-30 22:06] LABS: BLOOD UREA NITROGEN 12.1 mg/dL (7-17); CALCIUM 8.35 mg/dL (8.4-10.2); CARBON DIOXIDE 25.7 mmol/L (22-30.0); CHLORIDE 93.5 mmol/L (98-107); CREATININE 0.55 mg/dL (0.60-1.30); GLUCOSE 115.4 mg/dL (74-106); POTASSIUM 4.19 mmol/L (3.5-5.1); SODIUM 125.6 mmol/L (134.5-145)
[2023-07-01] MEDS: SODIUM CHLORIDE 3% 500 ML IV SCH (02:03)
[2023-07-01 04:59] VITALS: RESP 16
[2023-07-01] MEDS: SYNTHROID PO SCH (05:43)
[2023-07-01 05:51] LABS: BASOPHILS % (AUTO) 0.5 % (0.0-3.0); EOSINOPHILS # (AUTO) 0.4 K/ul (0.0-0.7); EOSINOPHILS % (AUTO) 6.1 % (0.0-7.0); HEMATOCRIT 37.1 % (37.0-47.0); HEMOGLOBIN 12.4 g/dl (12.0-16.0); IMMATURE GRANULOCYTE % (AUTO) 0.3 % (0.0-5.0); LYMPHOCYTES # (AUTO) 1.1 K/uL (0.60-3.4); LYMPHOCYTES % (AUTO) 17.1 (10.0-50.0); MEAN CORPUSCULAR HEMOGLOBIN 32.2 pg (27.0-31.0); MEAN CORPUSCULAR HGB CONC 33.4 (31.8-35.4); MEAN CORPUSCULAR VOLUME 96.4 fl (81.0-99.0); MONOCYTES # (AUTO) 0.6 K/uL (0.4-2.0); MONOCYTES % (AUTO) 8.9 (0-10); NEUTROPHILS # (AUTO) 4.2 K/ul (2.0-6.9); NEUTROPHILS % (AUTO) 67.1 % (42.2-75.2); PLATELET COUNT 253 10^3/uL (140-440); RDW COEFFICIENT OF VARIATION 12.5 % (11.6-14.8); RED BLOOD COUNT 3.85 10^6/ul (4.20-5.40); WHITE BLOOD COUNT 6.21 K/ul (4.6-10.2)
[2023-07-01 06:02] LABS: ALANINE AMINOTRANSFERASE 16.7 U/L (0-35); ALBUMIN 3.69 g/dL (3.5-5.0); ALKALINE PHOSPHATASE 75.9 U/L (53-141); ASPARTATE AMINO TRANSFERASE 31.6 U/L (14-36); BILIRUBIN,TOTAL 0.33 mg/dL (0.2-1.3); BLOOD UREA NITROGEN 9.2 mg/dL (7-17); CALCIUM 8.72 mg/dL (8.4-10.2); CHLORIDE 97.3 mmol/L (98-107); CREATININE 0.55 mg/dL (0.60-1.30); GLUCOSE 93.7 mg/dL (74-106); POTASSIUM 3.87 mmol/L (3.5-5.1); SODIUM 129.6 mmol/L (134.5-145); TOTAL PROTEIN 6.66 g/dL (6.3-8.2)
[2023-07-01] MEDS ORDERED: ASPIRIN EC PO SCH (08:30)
[2023-07-01] MEDS: MIRALAX PO SCH (09:46)
[2023-07-01] MEDS: CALCIUM 500 + VIT D 5 MCG (200 IU) TABLET PO SCH (09:46)
[2023-07-01] MEDS: MUCINEX PO SCH (09:46)
[2023-07-01] MEDS: SECTRAL PO SCH (09:46)
[2023-07-01] MEDS: MULTIVITAMIN TABLET PO SCH (09:46)
[2023-07-01] MEDS ORDERED: TESSALON PERLES PO PRN (09:52)
[2023-07-01 09:57] VITALS: BP 145/67; TEMP 98
[2023-07-01 10:27] VITALS: PULSE 70
--- NOTE | 2023-07-01 12:12 | DCSUM ---
Admission Date Admission Date: 06/29/23 Discharge Date Discharge Date: 07/01/23 Admission Diagnosis Admission Diagnosis: 1. Symptomatic Hyponatremia 2. Mycobacterium avium complex 3. CHF 4. Hypothyroidism Discharge Diagnosis Discharge Diagnosis: 1. Symptomatic Hyponatremia - Improving 2. Mycobacterium avium complex - Chronic, stable 3. CHF - Chronic, stable 4. Hypothyroidism - Chronic, stable Hospital Provider Hospital Provider: JARETH ORR, [facility] Summary of History and Physical Summary of History and Physical: 88 yo female presented to the ER with complaints of cough and fatigue. 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 States her cough started on monday and has progressed. It is productive with clear sputum. Denies any fever, chills, body aches, sob, sick contacts, or chest pain. Does report being very fatigued. States she is supposed to be taking antibiotics but stopped taking them because they were interacting with her other regular medications. Follows with Pulmonary at [facility] [place]. Hospital Course Subjective: Initially patient was started on NS@75mL/hr. Overnight, sodium did not show improvement. She was started on 3% saline at 30mL/hr. Sodium has gradually increased since beginning of admission. Likely due to diuretic use.Takes HCTZ. Held during hospital stay and recommend patient to hold until follow-up with PCP. Osmolalities obtained and pending. Started on sodium chloride QID. Discussed with patient to follow-up with PCP next week and have sodium rechecked. Patient has history of mycobacterium avium complex. Reported cough that is chronic per pulmonary at [facility] [place] notes. No active signs of infection. WBC within normal. CT chest negative for acute findings. Received rocephin in the ER. Did not continue. All other home medications continued as previously prescribed. Blood cultures were obtained by the ER provider for unknown reason. 1 bottle showed gram negative rods. Likely contaminate based on clinical findings. Appearance: Pleasant, No Apparent Distress, Alert and Well-appearing HEENT: MMM and Supple CVS: No Murmur and No Rubs Abdomen: Soft, Non-Tender and No Distention Respiratory: No Dyspnea Extremities: No Edema Vital Signs: Most Recent Vital Signs Temperature 98 F 07/01/23 09:56 Temperature Source Temporal Artery Scan 07/01/23 09:56 Temperature Source Oral 06/29/23 14:44 Pulse Rate 67 07/01/23 09:56 Respiratory Rate 16 07/01/23 09:56 Blood Pressure 145/67 H 07/01/23 09:56 Blood Pressure Mean 93 07/01/23 09:56 Blood Pressure Left Arm 166/69 06/29/23 20:15 Blood Pressure Location Left Arm 07/01/23 09:56 Blood Pressure Position Sitting 07/01/23 09:56 O2 Sat by Pulse Oximetry 95 07/01/23 09:56 Oxygen Delivery Method Room Air 07/01/23 09:56 Height 5 ft 2 in 06/29/23 20:15 Weight 105 lb 2 oz 06/30/23 12:59 Telemetry Type Remote Telemetry 07/01/23 07:00 Telemetry Monitoring Continues 07/01/23 07:00 Telemetry Heart Rate 76 07/01/23 07:00 EKG [place] Interval 0.20 07/01/23 07:00 EKG QRS Interval 0.07 07/01/23 07:00 Telemetry Strip Reading SR 07/01/23 07:00 Lab Results Last 24 Hours: 07/01/23 06/30/23 06/30/23 04:54 21:45 17:56 WBC 6.21 RBC 3.85 L Hgb 12.4 Hct 37.1 MCV 96.4 MCH 32.2 H MCHC 33.4 RDW Coeff of Mai 12.5 Plt Count 253 Immature Gran % (Auto) 0.3 Neut % (Auto) 67.1 Lymph % (Auto) 17.1 Mcdowell % (Auto) 8.9 Eos % (Auto) 6.1 Baso % (Auto) 0.5 Neut # (Auto) 4.2 Lymph # (Auto) 1.1 Mcdowell # (Auto) 0.6 Eos # (Auto) 0.4 Baso # (Auto) 0.0 Immature Gran # (Auto) 0.0 Sodium 129.6 L 125.6 L 125.5 L Potassium 3.87 4.19 4.14 Chloride 97.3 L 93.5 L 92.3 L Carbon Dioxide 26.0 25.7 28.1 Anion Gap 10.17 10.59 9.24 BUN 9.2 12.1 12.9 Creatinine 0.55 L 0.55 L 0.57 L Estimated GFR (MDRD) 105.00 105.00 100.00 BUN/Creatinine Ratio 16.72 22.00 22.63 Glucose 93.7 115.4 H 110.3 H Calcium 8.72 8.35 L 8.65 Total Bilirubin 0.33 AST 31.6 ALT 16.7 Alkaline Phosphatase 75.9 Total Protein 6.66 Albumin 3.69 Globulin 2.97 Albumin/Globulin Ratio 1.24 06/30/23 12:50 WBC RBC Hgb Hct MCV MCH MCHC RDW Coeff of Mai Plt Count Immature Gran % (Auto) Neut % (Auto) Lymph % (Auto) Mcdowell % (Auto) Eos % (Auto) Baso % (Auto) Neut # (Auto) Lymph # (Auto) [place]cd[place] # (Auto) Eos # (Auto) Baso # (Auto) Immature Gran # (Auto) Sodium 124.6 L Potassium 3.87 Chloride 86.1 L Carbon Dioxide 30.8 H Anion Gap 11.57 BUN 12.4 Creatinine 0.60 Estimated GFR (MDRD) 95.00 BUN/Creatinine Ratio 20.66 Glucose 93.0 Calcium 9.35 Total Bilirubin AST ALT Alkaline Phosphatase Total Protein Albumin Globulin Albumin/Globulin Ratio Discharge Instructions Discharge Planning: Discharge Planning > 40 minutes If patient is discharged with left ventricular systolic dysfunction: NA Discharged with a beta ann? [] If no, why not? [] Discharged with an dane/arb? [] If no, why not? [] Activity as tolerated Regular Diet Take sodium chloride tabs 4 times a day Follow-up with Primary Care Provider for hospital follow-up and repeat labs to check sodium level. Follow-up with Pulmonary as scheduled. Discharge Medications: Medications at Discharge (Home Meds & RX) acebutolol 200 mg capsule 200 mg PO TID 06/29/23 acetaminophen 500 mg tablet (Tylenol Extra Strength) 500 mg PO Q4-6H PRN pain 06/29/23 aspirin 81 mg tablet,delayed release (Adult Low Dose Aspirin) 162 mg PO DAILY 06/29/23 calcium carbonate 600 mg calcium (1,500 mg) tablet 600 mg PO DAILY 06/29/23 diclofenac sodium 1 % topical gel (Aspercreme Arthritis Pain) 2 g topical PRN 06/29/23 guaifenesin 1,200 mg tablet, extended release 12 hr (Mucinex) 1,200 mg PO DAILY 06/29/23 levothyroxine 88 mcg tablet 88 mcg PO DAILY 06/29/23 multivitamin (Daily Multi-Vitamin tablet) 1 tab PO DAILY 06/29/23 polyethylene glycol 3350 17 gram oral powder packet (Miralax) 17 g PO DAILY 06/29/23 sodium chloride 1,000 mg soluble tablet 1,000 mg PO QID #60 tabs 07/01/23 Discharge Plan Discharge Discharge Orders: Discharge Patient (ONCE); Ordered 07/01/23 Ordered By: JJ TAYLOR Activity Restrictions/Additional Instructions: Activity as tolerated Regular Diet Take sodium chloride tabs 4 times a day Follow-up with Primary Care Provider for hospital follow-up and repeat labs to check sodium level. YOU HAVE AN APPOINTMENT WITH DR. MILLER, [facility], ON August AT 11:15AM. SHOULD YOU HAVE ANY QUESTIONS OR NEED TO RESCHEDULE YOU CAN CONTACT THEIR OFFICE AT [phone] Instructions: Hyponatremia (GEN) Patient Disposition: HOME SELF-CARE Prescriptions: New sodium chloride 1,000 mg Tablet,Soluble 1,000 mg PO QID Qty: 60 0RF Continued levothyroxine 88 mcg tablet 88 mcg PO DAILY acebutolol 200 mg capsule 200 mg PO TID aspirin [Adult Low Dose Aspirin] 81 mg tablet,delayed release (DR/EC) 162 mg PO DAILY diclofenac sodium [Aspercreme Arthritis Pain] 1 % gel 2 g topical PRN Rx Instructions: apply to single elbow, wrist or hand; for hand includes palm/fingers/back of hand multivitamin [Daily Multi-Vitamin] Tablet 1 tab PO DAILY calcium carbonate 600 mg calcium (1,500 mg) tablet 600 mg PO DAILY Mucinex 1,200 mg tablet extended release 12hr 1,200 mg PO DAILY polyethylene glycol 3350 [Miralax] 17 gram powder in packet 17 g PO DAILY acetaminophen [Tylenol Extra Strength] 500 mg tablet 500 mg PO Q4-6H PRN (Reason: pain) Discontinued hydrochlorothiazide 25 mg tablet 25 mg PO DAILY Did you review [place] [employer]OLRO[employer] ATTENDANT for ALL controlled substances?: No Discussed opioids are addictive and Narcan is available by prescription or from pharmacy.: No Condition: Stable
[2023-07-01 12:41] LABS: CALCIUM 8.84 mg/dL (8.4-10.2); CARBON DIOXIDE 27.7 mmol/L (22-30.0); CHLORIDE 93.9 mmol/L (98-107); CREATININE 0.7 mg/dL (0.60-1.30); GLUCOSE 109.1 mg/dL (74-106); POTASSIUM 4.17 mmol/L (3.5-5.1); SODIUM 129.7 mmol/L (134.5-145)
[2023-07-01] MEDS ORDERED: SODIUM CHLORIDE PO SCH (13:00)
[2023-07-02 16:08] LABS: OSMOLALITY,URINE 356 mOsmol/kg (.)
[2023-07-04 10:17] LABS: SERUM OSMOLALITY 328 mOsmol/kg (280-301)
[2023-07-04 15:13] LABS: BACTERIA IDENTIFICATION Final report (.)
== END 2023-07-01 14:00 | disposition home or self-care (01) ==
LOC: MEDSURG B 14:35 → ED 14:35 → MEDSURG B 20:12
PROVIDERS: ADMIT Hospitalist; ATTEND Nurse Practitioner Family
DX: Z20.822 Contact with and (suspected) exposure to COVID-19; R53.83 Other fatigue; E03.9 Hypothyroidism, unspecified; Z79.899 Other long term (current) drug therapy; I50.9 Heart failure, unspecified; Z51.81 Encounter for therapeutic drug level monitoring; E87.1 Hypo-osmolality and hyponatremia; A31.0 Pulmonary mycobacterial infection; R05.9 Cough, unspecified